=== PATIENT | female | born 1980 | race African-American/Black ===

== ENCOUNTER 2018-03-08 08:29 | Day surgery (SDC) | payer SELFPAY ==
[2018-03-05 12:00] VITALS: BMI 23.9
[2018-03-08] MEDS ORDERED: EPINEPHrine/PF 1 MG/1 ML (1:1,000) AMPULE ONE (09:47)
[2018-03-08] MEDS ORDERED: LIDOCAINE HCL 2% (20ML MULTI-DOSE VIAL) NR ONE (09:47)
[2018-03-08] MEDS ORDERED: fentaNYL CITRATE 250 MCG/5 ML VIAL ONE ×2 (09:55→11:03)
[2018-03-08] MEDS ORDERED: PROPOFOL 20 ML ONE ×4 (09:56)
[2018-03-08] MEDS ORDERED: ROCURONIUM BROMIDE 50 MG/5 ML VIAL ONE (09:57)
[2018-03-08] MEDS ORDERED: SCOPOLAMINE HYDROBROMIDE 1 PATCH PATCH.TD72 ONE (10:00)
[2018-03-08] MEDS ORDERED: ceFAZolin SODIUM 1 GM VIAL ONE (11:06)
[2018-03-08] MEDS ORDERED: LIDOCAINE HCL 2% JELLY (5 ML/TUBE) ONE (11:06)
[2018-03-08] MEDS ORDERED: DEXAMETHASONE SOD PHOSPHATE 4 MG/1 ML VIAL ONE (11:06)
[2018-03-08] MEDS ORDERED: ONDANSETRON 4 MG/2 ML VIAL ONE (11:06)
[2018-03-08] MEDS ORDERED: NEOSTIGMINE METHYLSULFATE 0.5 MG/ML - 10 ML MDV ONE (11:19)
[2018-03-08] MEDS ORDERED: GUM MASTIC/STORAX/MSAL/ALCOHOL 1 DRP DROPSBTL MC ONE (11:49)
[2018-03-08] MEDS ORDERED: PROMETHAZINE HCL 25 MG/1 ML VIAL IVPUSH PRN (12:27)
[2018-03-08] MEDS ORDERED: ACETAMINOPHEN 325 MG TABLET (FP) PO PRN (12:27)
[2018-03-08] MEDS ORDERED: ONDANSETRON 4 MG/2 ML VIAL IVPUSH PRN (12:27)
[2018-03-08] MEDS ORDERED: oxyCODONE HCL 5 MG TABLET PO PRN ×2 (12:27)
[2018-03-08] MEDS ORDERED: LACTATED RINGERS SOLUTION 1,000 ML IV SCH (12:30)
[2018-03-08 13:42] VITALS: PULSE 76
[2018-03-08] MEDS ORDERED: oxyCODONE HCL 5 MG TABLET ONE (14:10)
[2018-03-08 14:42] VITALS: TEMP 98
[2018-03-08 15:56] VITALS: BP 124/75
== END 2018-03-08 15:35 | disposition home or self-care (01) ==
LOC: FASU 08:29
PROVIDERS: ATTEND Plastic Surgery
PROC: 0J080ZZ Alteration of Abdomen Subcutaneous Tissue and Fascia, Open Approach (ICD-10-PCS; principal; 2018-03-08 10:31)
DX: Z41.1 Encounter for cosmetic surgery (principal); L98.7 Excessive and redundant skin and subcutaneous tissue
CPT/HCPCS: 82962; 84703; 94760